=== PATIENT | male | born 1980 | race Caucasian/White ===

== ENCOUNTER 2024-12-22 14:22 | Emergency (ER) | payer BC ==
[2024-12-22] MEDS: Bacitracin Oint 1 GM U/D Packet TOP ONE (15:00)
== END 2024-12-22 15:07 | disposition home or self-care (01) ==
LOC: LB.ED 14:22
DX: S61.211A Laceration without foreign body of left index finger without damage to nail, initial encounter (principal); W26.0XXA Contact with knife, initial encounter; Y93.89 Activity, other specified
CPT/HCPCS: 12001; 99282; J2003